=== PATIENT | female | born 1990 | race Caucasian/White ===

== ENCOUNTER → 2019-10-26 17:00 | Outpatient (BNVA) | payer OTHER, SELFPAY | PROVIDERS: Family Provider Family Medicine; PCP Family Medicine; Visit Provider Obstetrics & Gynecology | DX: Z12.4 Encounter for screening for malignant neoplasm of cervix (principal) | CPT/HCPCS: 88175 ==

== ENCOUNTER → 2019-12-21 13:47 | Outpatient (BNVA) | payer OTHER, SELFPAY | PROVIDERS: Family Provider Family Medicine; PCP Family Medicine; Visit Provider Obstetrics & Gynecology | DX: O09.299 Supervision of pregnancy with other poor reproductive or obstetric history, unspecified trimester (principal); Z3A.10 10 weeks gestation of pregnancy | CPT/HCPCS: 80053; 80307; 84315; 85027; 86592; 86762; 86803; 86850; 86900; 87077; 87086; 87186; 87340 ==

== ENCOUNTER → 2020-01-03 10:25 | Outpatient (BNVA) | payer OTHER, SELFPAY | PROVIDERS: Family Provider Family Medicine; PCP Family Medicine; Visit Provider Obstetrics & Gynecology | DX: O99.89 Other specified diseases and conditions complicating pregnancy, childbirth and the puerperium (principal); R82.71 Bacteriuria; Z3A.12 12 weeks gestation of pregnancy | CPT/HCPCS: 84315; 87491; 87591 ==

== ENCOUNTER → 2020-02-01 15:56 | Outpatient (BNVA) | payer OTHER, SELFPAY | PROVIDERS: Family Provider Family Medicine; PCP Family Medicine; Visit Provider Nurse Practitioner Women's Health | DX: Z34.90 Encounter for supervision of normal pregnancy, unspecified, unspecified trimester (principal) | CPT/HCPCS: 80053; 84315; 87077; 87086; 87184 ==

== ENCOUNTER → 2020-03-27 10:54 | Outpatient (BNVA) | payer OTHER, SELFPAY | PROVIDERS: Family Provider Family Medicine; PCP Family Medicine; Visit Provider Obstetrics & Gynecology | DX: O23.42 Unspecified infection of urinary tract in pregnancy, second trimester (principal); R82.71 Bacteriuria; O09.299 Supervision of pregnancy with other poor reproductive or obstetric history, unspecified trimester; O09.292 Supervision of pregnancy with other poor reproductive or obstetric history, second trimester; Z3A.24 24 weeks gestation of pregnancy | CPT/HCPCS: 84315; 87077; 87086; 87184 ==

== ENCOUNTER → 2020-04-24 08:57 | Outpatient (BNVA) | payer OTHER, SELFPAY | PROVIDERS: Family Provider Family Medicine; PCP Family Medicine; Visit Provider Obstetrics & Gynecology | DX: Z34.90 Encounter for supervision of normal pregnancy, unspecified, unspecified trimester (principal) | CPT/HCPCS: 82950; 84315; 85025 ==

== ENCOUNTER → 2020-05-08 09:50 | Outpatient (BNVA) | payer OTHER, SELFPAY | PROVIDERS: Family Provider Family Medicine; PCP Family Medicine; Visit Provider Obstetrics & Gynecology | DX: Z34.90 Encounter for supervision of normal pregnancy, unspecified, unspecified trimester (principal) | CPT/HCPCS: 84315; 87077; 87086; 87184 ==

== ENCOUNTER → 2020-06-19 08:53 | Outpatient (BNVA) | payer OTHER, SELFPAY | PROVIDERS: Family Provider Family Medicine; PCP Family Medicine; Visit Provider Obstetrics & Gynecology | DX: O99.891 Other specified diseases and conditions complicating pregnancy (principal); O09.299 Supervision of pregnancy with other poor reproductive or obstetric history, unspecified trimester; R82.71 Bacteriuria | CPT/HCPCS: 84315; 87077; 87081; 87086; 87184 ==

== ENCOUNTER → 2020-07-03 12:47 | Outpatient (BNVA) | payer OTHER, SELFPAY | PROVIDERS: Family Provider Family Medicine; PCP Family Medicine; Visit Provider Obstetrics & Gynecology | DX: Z34.80 Encounter for supervision of other normal pregnancy, unspecified trimester (principal) | CPT/HCPCS: 81000 ==

== ENCOUNTER → 2020-07-10 13:47 | Outpatient (BNVA) | payer OTHER, SELFPAY | PROVIDERS: Family Provider Family Medicine; PCP Family Medicine; Visit Provider Obstetrics & Gynecology | DX: Z34.80 Encounter for supervision of other normal pregnancy, unspecified trimester (principal); Z20.822 Contact with and (suspected) exposure to COVID-19 | CPT/HCPCS: 87635 ==

== ENCOUNTER 2020-07-15 15:30 | Inpatient (IN) | payer OTHER, SELFPAY ==
[2020-07-15] VITALS (82 sets, daily range): BP systolic 79–149; BP diastolic 45–80; PULSE 69–156; RESP 15–16; TEMP 36.1–37.1; O2SAT 80–98; BMI 33.2
[2020-07-15] MEDS: lactated ringers 1,000 ML 999 ML IV ×2 (16:10→17:14)
[2020-07-15 16:19] LABS: Basophils # 0.1 10^3/uL (0.0-0.1); Basophils % 0.3 %; Eosinophils % 0.1 %; Hematocrit 35.6 % (37.0-47.0); Hemoglobin 12.1 g/dL (11.5-15.3); Lymphocytes # 1.8 10^3/uL (0.8-4.8); Lymphocytes % 12.8 %; Mean Corpuscular Hemoglobin 30.3 pg (28.0-34.0); Mean Platelet Volume 10.7 fL (7.4-10.4); Monocytes # 0.9 10^3/uL (0.2-0.9); Monocytes % 6.4 %; Neutrophils % 79.8 %; Nucleated Red Blood Cells % 0 %; Platelet Count 182 10^3/cmm (130-400); Red Cell Distribution Width 13.7 % (12.1-15.1); White Blood Count 14.4 10^3/uL (4.0-10.0)
--- NOTE | 2020-07-15 17:40 | ANES.PREANE2 ---
Pre-Anesthetic Assessment Pre-Anesthetic Assessment: Height/Weight: Height 1.68 m Weight 93.44 kg Temp Pulse BP Pulse Ox 97.2 F L 93 99/58 97 07/15/20 17:30 07/15/20 17:36 07/15/20 17:36 07/15/20 17:21 Preop Diagnosis: labor pain Proposed Procedure: epidural Familial anesthetic complications: none Was Beta Alayna taken within 24 hours: N/A Was Clonidine taken within 24 hours: N/A Social: Social History: No alcohol and No tobacco Exam: Pre-Anes Outpt Exam: alert, oriented x 3, clear to auscultation bilaterally and regular rate & rhythm Airway: Submandibular: WNL Cervical ROM: WNL MP: 2 Dentition: Full Pulmonary: Pulmonary: None reported CV/HEM: CV/HEM: Anemia : : None reported Hepatic: Hepatic: None reported GI: GI: None reported Metabolic: Metabolic: None reported Musc/skel: Musc/skel: None reported Neuropsych: Neuropsych: None reported Anesthetic Plan: ASA status: 2 Anesthesia: Regional (specify below) Risk of > 500 ml blood loss (7ml/kg in children): No Meds/Allergies Current Medications: Current Medications Generic Name Dose Route Start Last Admin Trade Name Freq PRN Reason Stop Dose Admin Lactated Ringer's 1,000 mls @ 999 m ls/hr 07/15/20 16:01 07/15/20 17:14 Lactated Ringers IV 999 mls/hr .Q1H1M PRN Administration See label comment s PFSH Anesthesia PFSH: Medical History No pertinent past medical history Denies diabetes, asthma, hypertension, seizures, DVT/PE. PCP: Dr. June Surgical History S/P wisdom tooth extraction Family History Denies family history of Colon cancer Ovarian cancer Diabetes Heart disease Hyperlipidemia Breast cancer Hypertension Uterine cancer Thyroid condition Stroke Social History Smoking and tobacco status: never smoked Alcohol intake: never Female Reproductive History: : 2 Data Anesthesia CBC & Chem 7: 07/15/20 15:58 Other Labs: Laboratory Results - last 48 hr 07/15/20 07/15/20 15:58 15:58 WBC 14.4 H RBC 4.00 L Hgb 12.1 Hct 35.6 L MCV 89.0 MCH 30.3 MCHC 34.0 RDW 13.7 Plt Count 182 MPV 10.7 H Neut % (Auto) 79.8 Lymph % (Auto) 12.8 [place] % (Auto) 6.4 Eos % (Auto) 0.1 Baso % (Auto) 0.3 Neut # (Auto) 11.50 H Lymph # (Auto) 1.8 [place] # (Auto) 0.9 Eos # (Auto) 0.0 Baso # (Auto) 0.1 Nucleated RBC % (auto) 0 Nucleated RBCs # 0.0 Blood Type O Positive Rho(D) Type Positive / 4+ Antibody Screen Negative Cardiac Studies: No Data to Display
--- NOTE | 2020-07-15 17:43 | P.ANES_ITS ---
Anesthesia Procedures Procedure/Date: 07/15/20 epidural Procedure Narrative: epidural complete, bolus given, epidural pump initiated with SOUVENIR ASSEMBLER education given, vitals taken during procedure using OBIX system and satisfactory throughout, patient admits to decrease pain, report of procedure to OB RN Epidural: Time Out Performed: Yes Consents Signed: Procedure Consent Consent: requested by attending/covering physician, from patient, risks and benefits reviewed and patient agrees to proceed Lumbar Level: L3-L4 Epidural position: sitting Epidural procedure: sterile prep of area, 1% lidocaine to numb the area (3 mL), 18 g needle, negative for paresthesia passed, neg for paresthesia, test dose given, 1.5% xylocaine 1:200k epi (5 mL), 0.2% Ropivacaine bolus ml (5 mL), placed PCEA, no systemic response, sterile dressing applied, L.U.D. no apparent complications and 0.2% Ropiavacaine @ mls/hr (13 mL/hr)
[2020-07-15] MEDS: oxytocin 30 UNIT/500 ML BAG 600 UNIT IV ×2 (19:02→21:04)
[2020-07-15] MEDS: miSOPROStol 200 mcg Tablet 800 MCG PR (19:02)
--- NOTE | 2020-07-15 19:10 | P.PCNOB_ITS ---
Delivery Note: Date of delivery: July 15, 2020 - PRE-DELIVERY DIAGNOSIS: 29-year-old 2 para 1-0-0-1 at 40 weeks and 0 days Active labor GBS negative Asymptomatic bacteriuria with E faecalis on suppressive antibiotics History of third-degree perineal tear History of hemorrhage POST-DELIVERY DIAGNOSIS: Vaginal delivery on 07/15/2020 PROCEDURE: Vaginal delivery on 07/15/2020 ANESTHESIA: Epidural anesthesia DELIVERING PHYSICIAN: Tomy Ren FACOG PRE-DELIVERY COURSE: Ms. Rodriguez is a 29-year-old 2 para 1-0-0-1 at 40 weeks and 0 days who presented to labor and delivery with reports of contractions. She states contractions started at 3 AM on 07/15/2020 when initially sporadic however after about 2 PM started to get more intense and regular and as result she came in. On initial examination she was noted to be 4 cm, 90% and -3 station cephalic with a category 1 tracing and was denny every 2 to 3 minutes and was uncomfortable. Covid and GBS were negative. She was admitted in active labor and 1 hour later was noted to be 7 cm 100% and -2 station with a bulging bag. She requested an epidural and this was placed and after the epidural she was noted to be 8 cm, 100% and -2 station. She had spontaneous rupture of membranes at 6:12 PM with clear fluid and was noted to be complete at this time and +2 station. She was feeling a lot of pressure and was set up in lithotomy position ready to push. tracing was overall category 1 other than occasional late decelerations that resolved with position change. DELIVERY NOTE: She was set up in lithotomy position and was pushing effectively. She was noted to be +3 station and continued pushing well. The head delivered in NIKKI position, nuchal cord x1 that was tight was present. The shoulders and rest of the body followed with her next push and delivered through the nuchal cord in a transverse fashion.. The baby's mouth and nose were suctioned and the baby was placed on the mother's belly. Once cord pulsations stopped the cord was clamped and cut. The placenta delivered spontaneously intact with membranes and was discarded. The fundus was noted to be firm and well contracted. The lower uterine segment continued to be boggy despite massage and 800 mcg of Cytotec was placed. The vagina and cervix were inspected and no cervical or sulcal lacerations were noted. The perineum was intact except for a second-degree perineal tear. Rectal exam was performed and rectal sphincter and mucosa were noted to be intact. Baby girl, Stefany Munoz born at 6:43 PM on 07/15/2020 with 7/8, weighing 9 pounds 0 ounces, 4090 g, 21-1/2 inches long. Placenta was delivered spontaneously intact with membranes at 6:47 PM. Cotyledons were intact , centrally inserted umbilical cord with 3 vessels noted. Estimated blood loss 350 mL. Complications-none, both baby and mother were left to recover in a stable condition. This documentation was created by [employer] service delivery manager software (known for inherent service delivery manager error). Every effort was made to assure accuracy of service delivery manager. Any obvious errors or omissions should be clarified with the author of the document. Coding Level of Care Code Acute Lunchroom Supervisor for Chg Fwd History History History 2 Term 2 Miscarriages/Ectopic 0 0 Living Children 2 Other History: 2 Para 2001, VAVD x 1 X 1 1----> 05/31/2017, full-term vacuum-assisted vaginal delivery at 39 weeks of a baby boy (Edis) [place] [facility] [place] to [place] exhaustion. was complicated by a two-vessel cord with no other complications. Delivery was complicated by third-degree perineal tear which was repaired and hemorrhage secondary to bleeding from the tears. Patient was anemic and had a syncopal episode and required a blood transfusion of 2 units after which she did well. 2----> 07/15/2020, 40 weeks, active labor, vaginal delivery of [place] baby [place](Stefany Munoz) [place] Dr. Ren [place] [facility] [place] 9 pounds 0 ounces. Second- degree perineal tear.
[2020-07-15] MEDS: methylergonovine 0.2 mg/mL INJ 1 mL IM (20:52)
[2020-07-15] MEDS: benzocaine-menthol 78 gm Canister 1 SPRAY TOPICAL (21:06)
[2020-07-15] MEDS: ibuprofen 800 mg tablet PO (21:07)
[2020-07-15] MEDS: lanolin oint 7 gm 1 APPLIC TOPICAL (21:07)
[2020-07-16] VITALS (13 sets, daily range): BP systolic 104–123; BP diastolic 58–78; PULSE 77–104; TEMP 36.1; O2SAT 96–97
[2020-07-16] MEDS: miSOPROStol 200 mcg Tablet PO ×4 (00:20→19:30)
[2020-07-16 06:37] LABS: Hematocrit 33.2 % (37.0-47.0); Hemoglobin 11.1 g/dL (11.5-15.3); Mean Corpuscular HGB Conc 33.4 g/dL (30.0-36.0); Mean Corpuscular Hemoglobin 30.6 pg (28.0-34.0); Mean Corpuscular Volume 91.5 fL (81-99); Mean Platelet Volume 10.5 fL (7.4-10.4); Platelet Count 158 10^3/cmm (130-400); Red Blood Count 3.63 10^6/uL (4.1-5.3); Red Cell Distribution Width 13.8 % (12.1-15.1); White Blood Count 15.8 10^3/uL (4.0-10.0)
[2020-07-16] MEDS: ibuprofen 800 mg tablet PO ×2 (09:52→14:54)
[2020-07-16] MEDS: prenatal vitamin Capsule 1 CAP PO (09:52)
[2020-07-16] MEDS: docusate sodium 100 mg Capsule PO ×2 (09:52→19:31)
--- NOTE | 2020-07-16 18:42 | PM.DCS ---
Discharge Providers Date of Admission: 07/15/20 15:30 Date of Discharge: July 16, 2020 Attending Provider at Admission: Tomy Anne MD Attending Provider at Discharge: Tomy Anne MD Primary Care Provider: PRE-DELIVERY DIAGNOSIS: 29-year-old 2 para 1-0-0-1 at 40 weeks and 0 days Active labor GBS negative Asymptomatic bacteriuria with E faecalis on suppressive antibiotics History of third-degree perineal tear History of hemorrhage POST-DELIVERY DIAGNOSIS: Vaginal delivery on 07/15/2020 PROCEDURE: Vaginal delivery on 07/15/2020 ANESTHESIA: Epidural anesthesia DELIVERING PHYSICIAN: Tomy Ren FACOG PRE-DELIVERY COURSE: Ms. Rodriguez is a 29-year-old 2 para 1-0-0-1 at 40 weeks and 0 days who presented to labor and delivery with reports of contractions. She states contractions started at 3 AM on 07/15/2020 when initially sporadic however after about 2 PM started to get more intense and regular and as result she came in. On initial examination she was noted to be 4 cm, 90% and -3 station cephalic with a category 1 tracing and was denny every 2 to 3 minutes and was uncomfortable. Covid and GBS were negative. She was admitted in active labor and 1 hour later was noted to be 7 cm 100% and -2 station with a bulging bag. She requested an epidural and this was placed and after the epidural she was noted to be 8 cm, 100% and -2 station. She had spontaneous rupture of membranes at 6:12 PM with clear fluid and was noted to be complete at this time and +2 station. She was feeling a lot of pressure and was set up in lithotomy position ready to push. tracing was overall category 1 other than occasional late decelerations that resolved with position change. DELIVERY NOTE: She was set up in lithotomy position and was pushing effectively. She was noted to be +3 station and continued pushing well. The head delivered in NIKKI position, nuchal cord x1 that was tight was present. The shoulders and rest of the body followed with her next push and delivered through the nuchal cord in a transverse fashion.. The baby's mouth and nose were suctioned and the baby was placed on the mother's belly. Once cord pulsations stopped the cord was clamped and cut. The placenta delivered spontaneously intact with membranes and was discarded. The fundus was noted to be firm and well contracted. The lower uterine segment continued to be boggy despite massage and 800 mcg of Cytotec was placed. The vagina and cervix were inspected and no cervical or sulcal lacerations were noted. The perineum was intact except for a second-degree perineal tear. Rectal exam was performed and rectal sphincter and mucosa were noted to be intact. Baby girl, Stefany Munoz born at 6:43 PM on 07/15/2020 with 7/8, weighing 9 pounds 0 ounces, 4090 g, 21-1/2 inches long. Placenta was delivered spontaneously intact with membranes at 6:47 PM. Cotyledons were intact , centrally inserted umbilical cord with 3 vessels noted. Estimated blood loss 350 mL. Complications-none, both baby and mother were left to recover in a stable condition. HOSPITAL COURSE: She underwent an uncomplicated vaginal delivery on 07/16/2020. 2 hours after delivery she had some uterine atony which responded well to Methergine and another bolus of Pitocin and after that had very minimal bleeding with a firm fundus.. She was continued on Cytotec 200 mcg every 6 hours while in the hospital and sent home with this prescription for a total of 3 days after delivery. She did well on day 0 and was ambulating well, tolerating regular diet, voiding freely, passing flatus. She was breast-feeding without difficulty and bonding well with her daughter. Pain was well-controlled with by mouth pain medication. She denied nausea, vomiting, fever, chills, shortness of breath, leg pain. She had moderate vaginal bleeding. On day # 1 she continued to do well with stable vital signs and stable hemoglobin at 11.1. She was discharged home on day 1 in a stable condition, as she desired early discharge. Warning signs for endometritis, mastitis, DVT/PE were reviewed with her. Post delivery activity restrictions were also reviewed with her at all her questions were answered to her satisfaction. Plans on using control pills for contraception and we will start this at her 6-week visit EXAM AT DISCHARGE: Gen.: No acute distress Heart: S1-S2 heard, regular rate and rhythm Lungs: Clear to auscultation bilaterally Abdomen: Soft, fundus firm below umbilicus, Legs: No calf tenderness, +1 bilateral pitting pedal edema. CONDITION AT DISCHARGE: Stable This documentation was created by [employer] landing gear mechanic software (known for inherent landing gear mechanic error). Every effort was made to assure accuracy of landing gear mechanic. Any obvious errors or omissions should be clarified with the author of the document. Reason for Visit Reason for Visit: Contractions Physical Exam Urinary Catheter Management^: Cox: Cath Placed During This Visit: yes Reason for Continuing Indwelling Catheter: Acute Urinary Retention or Obstruction Urinary Catheter Date of Insertion: 07/15/20 Urinary Catheter Time of Insertion: 17:54 Discharge Data Data Completed and Pending: Labs from last 24 hours 07/16/20 06:25 WBC 15.8 H RBC 3.63 L Hgb 11.1 L Hct 33.2 L MCV 91.5 MCH 30.6 MCHC 33.4 RDW 13.8 Plt Count 158 MPV 10.5 H Vitals: Last Vital Signs Temp 98.7 F 07/15/20 22:21 Pulse 81 07/16/20 17:22 Resp 16 07/15/20 22:21 BP 115/70 07/16/20 17:22 Pulse Ox 97 07/16/20 00:11 Discharge Plan Discharge Patient Disposition: Home Condition: Stable Prescriptions: New ibuprofen 800 mg tablet 800 mg PO Q8H Qty: 30 RF: 0 docusate sodium 100 mg Capsule 100 mg PO BID PRN (Reason: constipation) Qty: 30 RF: 0 misoprostol [Cytotec] 200 mcg tablet 200 mcg PO QID Qty: 8 RF: 0 Continued DHA 200 mg capsule 200 mg PO DAILY RF: 0 Discontinued ferrous sulfate 325 mg (65 mg iron) tablet,delayed release (DR/EC) 325 mg PO DAILY Qty: 180 RF: 0 cephalexin 250 mg capsule 250 mg PO BID Qty: 30 RF: 0 Discharge Orders: Discharge Order (Routine); Ordered 07/16/20 Ordered By: Tomy Anne Referrals: Tomy Anne MD [Physician] - (6-week with Dr Ren) Patient Instructions: Your Baby (DC), and Nipple Soreness (GEN), Pre-eclampsia and Eclampsia (GEN), OB Discharge Report, OB Food/Drug Interaction Guide, OB Home Care, OB Vaginal Deliveries - [facility], Abnormal Bleeding, Depression Activity Restrictions/Additional Instructions: Pelvic rest for 6 weeks, no heavy lifting for 6 weeks Discharge Attestations Time Spent in Discharge Care*: greater than 30 min Quality Metrics Clinical Quality Measures During this hospital stay, did patient experience: None Coding Level of Care Code Acute Trig SERENE ACOSTA note
== END 2020-07-16 20:55 | disposition home or self-care (01) | DRG 807 ==
PROVIDERS: Admitting Provider Obstetrics & Gynecology; Family Provider Family Medicine; PCP Family Medicine; Visit Provider Obstetrics & Gynecology
DX: O69.2XX0 Labor and delivery complicated by other cord entanglement, with compression, not applicable or unspecified (principal); Z37.0 Single live birth; O76 Abnormality in fetal heart rate and rhythm complicating labor and delivery; O70.1 Second degree perineal laceration during delivery; Z3A.40 40 weeks gestation of pregnancy; O75.89 Other specified complications of labor and delivery; B95.2 Enterococcus as the cause of diseases classified elsewhere
CPT/HCPCS: 36415; 51702; 59025; 59409; 85025; 85027; 86850; 86900; 96372; 99211; J2210; J2795

== ENCOUNTER → 2022-01-03 08:09 | Outpatient (BNVA) | payer OTHER, SELFPAY | PROVIDERS: Family Provider Family Medicine; PCP Family Medicine; Visit Provider Family Medicine | DX: Z00.00 Encounter for general adult medical examination without abnormal findings (principal); Z13.220 Encounter for screening for lipoid disorders; Z51.81 Encounter for therapeutic drug level monitoring | CPT/HCPCS: 80053; 80061; 85025 ==

== ENCOUNTER → 2022-05-06 13:53 | Outpatient (BNVA) | payer OTHER, SELFPAY | PROVIDERS: Family Provider Family Medicine; PCP Family Medicine; Referring Provider Family Medicine; Visit Provider Family Medicine | DX: Z34.90 Encounter for supervision of normal pregnancy, unspecified, unspecified trimester (principal); R30.0 Dysuria | CPT/HCPCS: 80307; 81000; 81025; 84144; 84443; 85007; 85025; 86592; 86762; 86803; 86850; 86900; 87086; 87340; 87491; 87591; 87624; 87806 ==

== ENCOUNTER 2022-05-13 07:40 | Outpatient (CLI) | payer OTHER, SELFPAY ==
--- NOTE | 2022-05-13 07:45 | US_ITS ---
WS: [id number] EARLY OBSTETRICAL ULTRASOUND (<14 WEEKS). HISTORY: Dates. COMPARISON: None available. Single intrauterine gestational sac is identified. Cardiac activity at 160 BPM. [place]-rump length darinel sures 1.4 cm which corresponds to a gestation of 7w5d. Normal-appearing yolk sac and amnion demonstra eliazar. Small subchorionic hemorrhage. Subchorionic hemorrhage measures approximately 7 x 5 mm along th e posterior gestational sac. No free fluid. Normal size ovaries with no mass. US/US OB <= 14 weeks fetus [id number] IMPRESSION: 1. Single intrauterine gestation of 7 weeks 5 days with an EDC of 12/25/2022 2. Normal cardiac activity.
== END 2022-05-13 07:41 | disposition home or self-care (01) ==
LOC: RAD 07:42
PROVIDERS: Family Provider Family Medicine; PCP Family Medicine; Visit Provider Family Medicine
DX: O20.9 Hemorrhage in early pregnancy, unspecified (principal); Z3A.14 14 weeks gestation of pregnancy
CPT/HCPCS: 76801

== ENCOUNTER → 2022-05-26 08:25 | Outpatient (BNVA) | payer OTHER, SELFPAY | PROVIDERS: Family Provider Family Medicine; PCP Family Medicine; Visit Provider Family Medicine | DX: Z34.80 Encounter for supervision of other normal pregnancy, unspecified trimester (principal); Z51.81 Encounter for therapeutic drug level monitoring; D69.6 Thrombocytopenia, unspecified | CPT/HCPCS: 84144; 84702 ==

== ENCOUNTER → 2022-07-15 13:30 | Outpatient (BNVA) | payer OTHER, SELFPAY | PROVIDERS: Family Provider Family Medicine; PCP Family Medicine; Visit Provider Family Medicine | DX: Z34.80 Encounter for supervision of other normal pregnancy, unspecified trimester (principal); Z51.81 Encounter for therapeutic drug level monitoring; D69.6 Thrombocytopenia, unspecified | CPT/HCPCS: 85025 ==

== ENCOUNTER 2022-08-04 14:44 | Outpatient (CLI) | payer OTHER, SELFPAY ==
--- NOTE | 2022-08-04 15:00 | US_ITS ---
WS: [id number] OBSTETRICAL ULTRASOUND COMPLETE HISTORY: Anatomy US COMPARISON: 05/13/2022 Single intrauterine gestation in Cephalic presentation. Cervix is Closed and normal length. Cervical length is 3.7 cm. Normal amount of amniotic fluid surrounds the fetus. Placenta: Anterior, no previa or abruption. Placenta grade 1 Heart: 160 BPM. Four chambers are identified. RIGHT and LEFT outflow tracts are unremarkable. Anatomy: Intracranial structures and spine are normal. kidneys, stomach and urinary bladd er are unremarkable. Abdominal wall, three-vessel cord and cord insertion site are normal. 4 extremities are present. profile: Unremarkable. Gender: Male. measurements: BPD = 4.8 cm = 20w3d; HC = 17.7 cm = 20w1d; AC = 14.6 cm = 19w6d; FL = 3.3 cm = 20w1d; EFW: 328 g. Not available. Biometry is internally concordant. AGA by ultrasound: 20w1d CARLOS MANUEL by ultrasound: 12/21/2022 US/US OB >= 14 weeks fetus [id number] IMPRESSION: 1. Single intrauterine gestation of 20w1d with an CARLOS MANUEL of 12/21/2022. 2. Unremarkable screening survey of anatomy.
== END 2022-08-04 14:45 | disposition home or self-care (01) ==
LOC: RAD 14:48
PROVIDERS: Family Provider Family Medicine; PCP Family Medicine; Visit Provider Family Medicine
DX: Z34.82 Encounter for supervision of other normal pregnancy, second trimester (principal); Z3A.20 20 weeks gestation of pregnancy
CPT/HCPCS: 76805

== ENCOUNTER → 2022-09-05 08:47 | Outpatient (BNVA) | payer OTHER, SELFPAY | PROVIDERS: Family Provider Family Medicine; PCP Family Medicine; Visit Provider Family Medicine | DX: Z34.80 Encounter for supervision of other normal pregnancy, unspecified trimester (principal) | CPT/HCPCS: 82950 ==

== ENCOUNTER → 2022-10-28 13:15 | Outpatient (BNVA) | payer OTHER, SELFPAY | PROVIDERS: Family Provider Family Medicine; PCP Family Medicine; Visit Provider Family Medicine | DX: Z34.80 Encounter for supervision of other normal pregnancy, unspecified trimester (principal) | CPT/HCPCS: 85025 ==

== ENCOUNTER → 2022-11-28 08:43 | Outpatient (BNVA) | payer OTHER, SELFPAY | PROVIDERS: Family Provider Family Medicine; PCP Family Medicine; Visit Provider Family Medicine | DX: Z34.90 Encounter for supervision of normal pregnancy, unspecified, unspecified trimester | CPT/HCPCS: 87081 ==

== ENCOUNTER → 2022-12-19 08:40 | Outpatient (BNVA) | payer OTHER, SELFPAY | PROVIDERS: PCP Family Medicine; Visit Provider Family Medicine | DX: Z34.80 Encounter for supervision of other normal pregnancy, unspecified trimester (principal); Z51.81 Encounter for therapeutic drug level monitoring; R03.0 Elevated blood-pressure reading, without diagnosis of hypertension; D69.6 Thrombocytopenia, unspecified | CPT/HCPCS: 80053; 82570; 84156; 84550; 85025 ==

== ENCOUNTER 2022-12-23 20:45 | Inpatient (IN) | payer OTHER, SELFPAY ==
[2022-12-23] VITALS (17 sets, daily range): BP systolic 110–163; BP diastolic 57–89; PULSE 82–104; RESP 15; TEMP 36.3; BMI 33.5
[2022-12-23 19:52] LABS: Basophils % 0.3 %; Eosinophils # 0.1 10^3/uL (0.0-0.8); Eosinophils % 0.7 %; Hematocrit 31.8 % (36-47); Lymphocytes % 16.8 %; Mean Corpuscular HGB Conc 34.3 g/dL (30-55); Mean Corpuscular Hemoglobin 30.9 pg (27-33); Mean Corpuscular Volume 90.1 fl (85-98); Mean Platelet Volume 11.1 fL (7.4-10.4); Monocytes # 1.1 10^3/uL (0.2-0.9); Monocytes % 9.6 %; Neutrophils # 8.41 10^3/uL (1.8-7.7); Neutrophils % 71.8 %; Nucleated Red Blood Cells % 0 %; Platelet Count 141 10^3/cmm (157-399); Red Blood Count 3.53 10^6/uL (3.85-5.65); Red Cell Distribution Width 15.8 % (12.1-15.1); White Blood Count 11.69 10^3/uL (3.29-11.43)
[2022-12-23] MEDS: oxytocin 30 UNIT/500 ML BAG IV (21:15)
[2022-12-23] MEDS: dextrose 5%-lactated ringers 1,000 ML 125 ML IV (21:22)
--- NOTE | 2022-12-23 21:45 | P.HP_ITS ---
Providers/Chief Complaint Admitting Physician: Simeon June MD Primary Care Provider: Simeon June MD Chief Complaint: Induction of Labor History of Present Illness Darrius Rodriguez is a 32 year old @ 40.0 weeks by LMP c/with 7 wk US. Preg c/b 1st TM spotting, h/o hemorrhage x 2 needing transfusion x 1, h/o vacuum assisted delivery, h/o 2 vessel cord, father of baby with hearing problems, anemia The patient presented to labor delivery triage on the evening of 12/23/2022 for a scheduled induction of labor due to postdates. The patient preferred to have induction related to occasionally high blood pressures, history of hemorrhage and history of vacuum-assisted delivery. She currently feels well. She denies any chest pains, shortness of breath, nausea, vomiting, diarrhea, constipation, leakage of fluid, vaginal bleeding. She has been having increased contractions over the last 2 to 3 days that she thought may send her into labor, however spaced out on their own. Medications/Allergies Home Medications Medication Instructions Recorded Confirmed Last Taken Type ferrous sulfate 325 mg (65 mg 325 mg PO BID #60 tabs 10/28/22 12/21/22 Unknown Rx iron) tablet prenat.vits,bernard,swj-faml-dozez 1 tab PO DAILY 10/28/22 12/21/22 Unknown History Allergies Allergy/AdvReac Type Severity Reaction Status Date / Time No Known Allergies Allergy Verified 10/16/21 11:32 PFSH Acute PFSH: Medical History No pertinent past medical history Denies diabetes, asthma, hypertension, seizures, DVT/PE. PCP: Dr. June Surgical History S/P wisdom tooth extraction Family History Denies family history of Colon cancer Ovarian cancer Diabetes Heart disease Hyperlipidemia Breast cancer Hypertension Uterine cancer Thyroid condition Stroke Social History Smoking and tobacco status: never smoked Alcohol intake: never Substance/Drug Use: never Female Reproductive History: : 3 Vitals/I&O/Wt Last Vital Signs Temp 97.3 F L 12/23/22 20:06 Pulse 93 12/23/22 21:31 Resp 15 12/23/22 19:45 BP 119/72 12/23/22 21:31 O2 Del Method Room Air 12/23/22 20:44 Weight last 48 hrs Weight 208 lb Physical Exam Narrative: General: Alert and oriented x3 Eyes: Pupils equal round and reactive to light and accommodation Mouth: Mucous membranes moist, pharynx non-erythematous Cardiac: Regular rate and rhythm without murmurs Lungs: Clear to auscultation bilaterally without wheezes, crackles or rhonchi Abdomen: Soft, non-tender, fundus consistent with gestational age Extremities: Trace edema in the bilateral lower extremities Data 12/23/22 19:35 A&P Assessment and plan (1) Supervision of normal intrauterine in multigravida: The patient is doing well overall at this time. She is 1 cm dilated with 50% ef facement and soft upon presentation. Because she is having regular contractions every 3 to 6 minutes, we will start IV Pitocin instead of Cytotec to help avoid hyperstimulation complications. heart tones have been in the mid 130s with moderate variability good accelerations with a category 1 tracing. Contractions spaced out after admission and have started to come back at every 10 minutes. We will start IV Pitocin and increase by 4 units every 30 minutes. The patient may have a laboring epidural when she gets to 3 cm will be on. We can use IV pain medications prior to this if needed. All questions were answered. The patient and her are in agreement with current plan of care. Attestations Medical Necessity Statement*: The patient will be here for greater than 2 midnights due to routine intrapartum and management of labor and delivery. Coding Level of Care Code Acute Code for Chg Fwd Diagnoses Supervision of normal intrauterine in multigravida Z34.80
[2022-12-24] VITALS (44 sets, daily range): BP systolic 103–140; BP diastolic 55–78; PULSE 70–100; RESP 15–18; TEMP 35.7–36.8; O2SAT 94–98
[2022-12-24] MEDS: lactated ringers 1,000 ML 999 ML IV (02:56)
--- NOTE | 2022-12-24 03:56 | P.ANESUD_ITS ---
Pre-Anesthetic Update Pre-Anesthetic Assessment: Date of Surgery/Procedure: 12/24/22 Preop Anne gnosis: labor Proposed Procedure: epidural Any changes to Pre-Anesthetic Assessment?: No Last Intake: 11:45 Labs Last 48hrs: Short CBC 12/23/22 Range/Units 19:35 WBC 11.69 H (3.29-11.43) 10^ 3/uL Hgb 10.90 L (11.27-16.99) g/ dL Hct 31.8 L (36-47) % MCV 90.1 (85-98) fl Plt Count 141 L (157-399) 10^3/c mm Neut % (Auto) 71.8 % Neut # (Auto) 8.41 H (1.8-7.7) 10^3/u L Vitals: Temperature 97.3 F L 12/23/22 20:06 Pulse Rate 81 12/24/22 03:46 Pulse Rhythm Regular 12/23/22 20:44 Pulse Strength 3+ Normal 12/23/22 20:44 Respiratory Rate 15 12/23/22 19:45 Respiratory Effort Spontaneous, Non- Labored 12/23/22 20:44 Respiratory Depth Normal 12/23/22 20:44 Respiratory Patter n Normal 12/23/22 20:44 Blood Pressure 111/56 12/24/22 03:46 Oxygen Delivery Me thod Room Air 12/23/22 20:44 Exam: Pre-Anes Outpt Exam: alert, oriented x 3, clear to auscultation bilaterally and regular rate & rhythm Cardiac Studies: No Data to Display
--- NOTE | 2022-12-24 04:11 | ANES.PROC ---
Anesthesia Procedures Procedure/Date: 12/24/22 Epidural: Time Out Performed: Yes Consents Signed: Procedure Consent and NPO Consent Consent: requested by attending/covering physician, from patient, risks and benefits reviewed and patient agrees to proceed Lumbar Level: L3-L4 Epidural position: sitting Epidural procedure: sterile prep of area (betadine), 1% lidocaine to numb the area (3ml) and 18 g needle Additional Comments: Pt with local given and once placed tuohy in skin pt began screaming I gotta push the baby is coming. Epi aborted and pt placed supine in bed with Dr June in room for delivery.
[2022-12-24] MEDS: lidocaine 2% INJ 20 mL INJECTION (04:22)
--- NOTE | 2022-12-24 04:57 | P.PCNOB_ITS ---
Delivery Note: Date of delivery: December 24, 2022 Pre-delivery diagnoses: 1. Intrauterine at 40.1 weeks gestation 2. First trimester spotting 3. History of hemorrhage x2 4. History of vacuum-assisted delivery 5. Anemia Post-delivery diagnoses: 1. Intrauterine status post spontaneous vaginal delivery at 40.1 weeks gestation 2. First trimester spotting 3. History of hemorrhage x2 4. History of vacuum-assisted delivery 5. Anemia 6. Delivery of healthy male weighing 9 pounds 8 ounces with Apgars of 7 and 9 Procedure: Spontaneous vaginal delivery Delivering Physician: Simeon June MD Estimated blood loss (mL): 300 Findings: 1. Healthy male weighing 9 pounds 8 ounces with Apgars of 7 and 9 2. Nuchal cord x2 3. Intact placenta with central umbilical cord insertion site Pre-Delivery Course: Darrius Rodriguez is a 32 year old G3 now P3 status post spontaneous vaginal delivery @ 40.1 weeks by LMP c/with 7 wk US. Her was complicated by 1st TM spotting, h/o hemorrhage x 2 needing transfusion x 1, h/o vacuum assisted delivery, h/o 2 vessel cord, father of baby with hearing problems, anemia. The patient presented to labor and delivery on the evening of 12/24/2022 for a scheduled induction of labor. IV Pitocin was started at approximately 9:30 PM. She was 1 cm dilated upon arrival. Her contractions gradually increased in frequency and by approximately 2:30 AM on 12/24/2022 she was 3 cm dilated. At that time she noted some leaking fluid. It was suspected that she may have a high leak. She continued to have a bulging bag. She was bolused for an epidural at that time. From that point she made rapid change and they tried to get an epidural for her, however she changed to complete by approximately 4:08 AM and was not able to get the epidural. Delivery: The patient began pushing at 4:10 AM on 12/24/2022. The patient pushed well and the infant delivered rapidly. The was born in the OA position at 4:12 AM on 12/24/2022. Nuchal cord x2 was reduced prior to delivery of the rest of the . The 's left shoulder was anterior shoulder and it delivered with moderate downward pressure. The rest of the infant delivered without complication. The cord was also noted to be wrapped around the left arm. The 's mouth and nose were bulb suctioned by myself and the infant began crying shortly after delivery. The was placed on the patient's chest where the nurses were waiting to care for him. The cord was clamped by myself after approximately 1 minute and cut by the 's father. Cord blood was obtained. The cord was then drained of blood and uterine massage was carried out and traction was placed on the umbilical cord. The placenta delivered without complication at 4:18 AM on 12/24/2022. The placenta was noted to be intact with a central umbilical cord insertion site. The cervix was inspected and no lacerations were noted. The uterus was noted to be high and with uterine massage, the uterus clamped down well and the patient was able to void with pressure. The patient's bleeding decreased well. The vaginal wall was inspected and a second-degree midline perineal laceration was noted. 1% lidocaine was used for anesthesia. The laceration was repaired using 3-0 Vicryl in a running fashion. The patient tolerated this well. A rectal exam was done and no sutures were noted in the rectal vault. Currently both the mother and are doing well. History History History 3 Term 3 0 Miscarriages/Ectopic 0 Living Children 3 Past Pregnancies Del. Date GA/Weeks Outcome Route Wt Inf Gender Labor Lgth Comp. Anesth esia Location 05/30/17 39 live - full term Vaginal 7 lb 10.5 oz Male 30 raven rs [facility] delivered - [facility] 07/15/20 40 live - full term Vaginal 9 lb Female 15 Other regional [facility] - [facility] 12/24/22 40 live - full term Vaginal 9 lb 8 oz Male 7 hr local [facility] [place] Delivery Date: 05/30/17 Last Updated by: Simeon June MD Induced due to a 2 vessel cord. Possible low fluid, passed out. Vaccuum assisted, 2nd degree tear, 2 units of blood transfused. Delivery Date: 07/15/20 Last Updated by: Simeon June MD Spontaneous labor, episiotomy, Heavy bleeding needing Cytotec, methergine, epidural, 2nd Pit bolus. Delivery Date: 12/24/22 Last Updated by: Simeon June MD 1st TM bleeding, no PP hemorrhage, no epidural A&P Assessment and plan (1) Spontaneous vaginal delivery: Coding Level of Care Code Acute Code for Chg Fwd Diagnoses Spontaneous vaginal delivery O80
[2022-12-24] MEDS: benzocaine-menthol 78 gm Canister 1 SPRAY TOPICAL (07:01)
[2022-12-24] MEDS: docusate sodium 100 mg Capsule PO ×2 (08:57→19:19)
[2022-12-24] MEDS: prenatal vitamin Capsule 1 CAP PO (08:57)
[2022-12-24] MEDS: ibuprofen 800 mg tablet PO ×3 (08:57→20:54)
[2022-12-24 16:18] LABS: Mean Corpuscular HGB Conc 34.5 g/dL (30-55); Mean Corpuscular Volume 89.9 fl (85-98); Mean Platelet Volume 11.1 fL (7.4-10.4); Platelet Count 160 10^3/cmm (157-399); Red Blood Count 3.45 10^6/uL (3.85-5.65); Red Cell Distribution Width 15.8 % (12.1-15.1); White Blood Count 16.66 10^3/uL (3.29-11.43)
--- NOTE | 2022-12-25 03:15 | PC.NURSE ---
Pt hit call light at approximately 0310 and stated she went to the bathroom and felt like she passed a large clot. This RN inspected the clot in the toilet, it appeared to be about the size of a golf ball. This RN instructed mom to lay down, fundal message was performed, uterus was 3 below umbilicus, firm, midline. Pt stated she changed her pad and there was minimal blood on the pad. This RN instructed pt to monitor bleeding and to hit call light again if she feels like she passes another large clot.
[2022-12-25 04:00] VITALS: BP 110/60; PULSE 85; RESP 15; TEMP 37
[2022-12-25 06:31] VITALS: RESP 15
--- NOTE | 2022-12-25 07:04 | PM.DCS ---
Discharge Providers Date of Admission: 12/23/22 20:45 Date of Discharge: December 25, 2022 Attending Provider at Admission: Simeon June MD Attending Provider at Discharge: Simeon June MD Primary Care Provider: Simeon June MD Diagnoses at Discharge Discharge Diagnosis (1) Spontaneous vaginal delivery: Status: Resolved Other Information Additional DC diagnoses/information: 1.? Intrauterine status post spontaneous vaginal delivery at 40.1 weeks gestation 2.? First trimester spotting 3.? History of hemorrhage x2 4.? History of vacuum-assisted delivery 5.? Anemia 6.? Delivery of healthy infant male weighing 9 pounds 8 ounces with Apgars of 7 and 9 Reason for Visit Reason for Visit: Induction of Labor Brief History: Darrius Rodriguez is a 32 year old G3 now P3 status post spontaneous vaginal delivery @ 40.1 weeks by LMP c/with 7 wk US.? Her was complicated by 1st TM spotting, h/o hemorrhage x 2 needing transfusion x 1, h/o vacuum assisted delivery, h/o 2 vessel cord, father of baby with hearing problems, anemia. Hospital Course Hospital Course The patient presented to labor and delivery on the evening of 12/24/2022 for a scheduled induction of labor.? IV Pitocin was started at approximately 9:30 PM.? She was 1 cm dilated upon arrival.? Her contractions gradually increased in frequency and by approximately 2:30 AM on 12/24/2022 she was 3 cm dilated.? At that time she noted some leaking fluid.? It was suspected that she may have a high leak.? She continued to have a bulging bag.? She was bolused for an epidural at that time.? From that point she made rapid change and they tried to get an epidural for her, however she changed to complete by approximately 4:08 AM and was not able to get the epidural. The patient began pushing at 4:10 AM on 12/24/2022.? The patient pushed well and the delivered rapidly.? The infant was born in the OA position at 4:12 AM on 12/24/2022. The patient did well and had moderate bleeding initially that slowly decreased. She did not require any medications beyond IV Pitocin The patient had a second-degree perineal laceration that was repaired without complication. The patient has done well and is showing no signs of complications at this time. She is ambulating, voiding, passing gas and tolerating food by mouth. Her hemoglobin dropped by 0.2 points. The patient's pain is well controlled with Motrin alone. Routine discharge instructions were discussed. The patient will be discharged home today and plan to follow-up with me at 6 weeks . Physical Exam Narrative: General: Alert and oriented x3 Cardiac: Regular rate and rhythm without murmurs Lungs: Clear to auscultation bilaterally without wheezes, crackles or rhonchi Abdomen: Soft, mild tenderness over uterus. The uterus is firm and 1 cm below the umbilicus. Extremities: Trace edema in the bilateral lower extremities Discharge Data Studies Completed and Pending Laboratory Results WBC 16.66 10^3/uL (3.29-11.43) H 12/24/22 15:36 RBC 3.45 10^6/uL (3.85-5.65) L 12/24/22 15:36 Hgb 10.70 g/dL (11.27-16.99) L 12/24/22 15:36 Hct 31.0 % (36-47) L 12/24/22 15:36 MCV 89.9 fl (85-98) 12/24/22 15:36 MCH 31.0 pg (27-33) 12/24/22 15:36 MCHC 34.5 g/dL (30-55) 12/24/22 15:36 RDW 15.8 % (12.1-15.1) H 12/24/22 15:36 Plt Count 160 10^3/cmm (157-399) 12/24/22 15:36 MPV 11.1 fL (7.4-10.4) H 12/24/22 15:36 Neut % (Auto) 71.8 % 12/23/22 19:35 Lymph % (Auto) 16.8 % 12/23/22 19:35 [place] % (Auto) 9.6 % 12/23/22 19:35 Eos % (Auto) 0.7 % 12/23/22 19:35 Baso % (Auto) 0.3 % 12/23/22 19:35 Neut # (Auto) 8.41 10^3/uL (1.8-7.7) H 12/23/22 19:35 Lymph # (Auto) 2.0 10^3/uL (0.8-4.8) 12/23/22 19:35 [place] # (Auto) 1.1 10^3/uL (0.2-0.9) H 12/23/22 19:35 Eos # (Auto) 0.1 10^3/uL (0.0-0.8) 12/23/22 19:35 Baso # (Auto) 0.0 10^3/uL (0.0-0.1) 12/23/22 19:35 Nucleated RBC % (auto) 0 % 12/23/22 19:35 Nucleated RBCs # 0.0 /100WBC 12/23/22 19:35 Vitals Last Vital Signs Temp 98.6 F 12/25/22 04:00 Pulse 85 12/25/22 04:00 Resp 15 12/25/22 06:31 BP 110/60 12/25/22 04:00 Pulse Ox 97 12/24/22 16:45 O2 Del Method Room Air 12/25/22 04:00 Discharge Plan Discharge Patient Disposition: Home Condition: Stable Prescriptions: New ibuprofen 800 mg Tablet 800 mg PO TID Qty: 30 0RF Continued prenat.vits,bernard,yqn-clkn-xrogo Tablet 1 tab PO DAILY ferrous sulfate 325 mg (65 mg iron) tablet 325 mg PO BID Qty: 60 3RF Discharge Orders: Discharge Order (Routine); Ordered 12/25/22 Ordered By: Simeon June Referrals: Simeon June MD [Primary Care Provider] - 02/05/23 9:00 am () Discharge Diet: Regular Patient Instructions: Depression (DC), Preeclampsia and Eclampsia After Delivery (GEN), Hemorrhage (DC), OB Discharge Report, OB Food/Drug Interaction Guide, Opioid Safety, OB [facility], OB Vaginal Deliveries, Abnormal Bleeding Activity Restrictions/Additional Instructions: Nothing per vagina for 6 weeks. I would recommend showers instead of baths for the first 6 weeks. Discharge Attestations Time Spent in Discharge Care*: less than 30 min Quality Metrics Clinical Quality Measures [ No reported AMI, CVA or VTE this stay] Coding Level of Care Code Acute Code for Chg Fwd Diagnoses Spontaneous vaginal delivery O80
[2022-12-25 10:40] VITALS: BP 120/78; PULSE 78; RESP 18; TEMP 36.4; O2SAT 98
== END 2022-12-25 10:45 | disposition home or self-care (01) | DRG 807 ==
LOC: OPOB 20:46 → OBGYN 20:46
PROVIDERS: Admitting Provider Family Medicine; PCP Family Medicine; Visit Provider Family Medicine
DX: O48.0 Post-term pregnancy (principal); Z37.0 Single live birth; Z3A.40 40 weeks gestation of pregnancy; O69.81X0 Labor and delivery complicated by cord around neck, without compression, not applicable or unspecified; O99.02 Anemia complicating childbirth; D64.9 Anemia, unspecified; O70.1 Second degree perineal laceration during delivery
CPT/HCPCS: 36415; 59025; 59409; 85025; 85027; 99211; J2590; J7120; J7121

== ENCOUNTER 2023-07-21 10:54 | Outpatient (CLI) | payer OTHER, SELFPAY ==
--- NOTE | 2023-07-21 11:06 | XRR_ITS ---
PROCEDURE INFORMATION: Exam: XR Right Foot Exam date and time: 07/21/2023 11:09 AM Age: 32 years old Clinical indication: Injury or trauma; Fall; Blunt trauma; Foot; Right; Injury date: 07/20/23; Injury details: Fell down stairs yesterday; Additional info: Pain after fall TECHNIQUE: Imaging protocol: Radiologic exam of the right foot. Views: 3 or more views. COMPARISON: No relevant prior studies available. FINDINGS: Bones/joints: There is a oblique comminuted interarticular fracture involving the proximal medial aspect of the proximal phalange of the great toe. The age of this finding is indeterminate. Soft tissues: Normal. XR/XR foot RT min 3V* [id number] IMPRESSION: 1. Interarticular fracture proximal phalange of the great toe 2. Otherwise negative for additional bony abnormality of the foot.
== END 2023-07-21 10:55 | disposition home or self-care (01) ==
LOC: RAD 11:01
PROVIDERS: PCP Family Medicine; Visit Provider Chiropractor
DX: S92.411A Displaced fracture of proximal phalanx of right great toe, initial encounter for closed fracture (principal); W10.9XXA Fall (on) (from) unspecified stairs and steps, initial encounter
CPT/HCPCS: 73630

== ENCOUNTER 2023-08-11 07:47 | Outpatient (CLI) | payer OTHER, SELFPAY ==
--- NOTE | 2023-08-11 07:55 | XR_ITS ---
WS: [id number] XR foot RT min 3V* [id number] REASON FOR EXAM: fractured toe FINDINGS: Fracture of the proximal most medial metaphysis of the proximal phalanx of the great toe with intra-a rticular extension. Minimal displacement of the small proximal fracture fragment. No change in the fracture site compared to 07/21/2023. XR/XR foot RT min 3V* [id number] IMPRESSION: Stable right great toe fracture.
== END 2023-08-11 07:48 | disposition home or self-care (01) ==
PROVIDERS: Absent Provider Chiropractor; PCP Family Medicine; Visit Provider Clinical Nurse Specialist Adult Health
DX: S92.414A Nondisplaced fracture of proximal phalanx of right great toe, initial encounter for closed fracture (principal); Y99.9 Unspecified external cause status
CPT/HCPCS: 73630

== ENCOUNTER → 2023-08-13 09:00 | Outpatient (BNVA) | payer OTHER, SELFPAY | PROVIDERS: PCP Family Medicine; Visit Provider Podiatrist Foot & Ankle Surgery | DX: S92.411A Displaced fracture of proximal phalanx of right great toe, initial encounter for closed fracture; X58.XXXA Exposure to other specified factors, initial encounter | CPT/HCPCS: 73630 ==

== ENCOUNTER → 2023-09-21 09:02 | Outpatient (BNVA) | payer OTHER, SELFPAY | PROVIDERS: PCP Family Medicine; Visit Provider Podiatrist Foot & Ankle Surgery | DX: S92.411D Displaced fracture of proximal phalanx of right great toe, subsequent encounter for fracture with routine healing; W10.9XXD Fall (on) (from) unspecified stairs and steps, subsequent encounter | CPT/HCPCS: 73630 ==

== ENCOUNTER → 2023-11-18 15:01 | Outpatient (BNVA) | payer OTHER, SELFPAY | PROVIDERS: PCP Family Medicine; Visit Provider Podiatrist Foot & Ankle Surgery | DX: S92.414 Nondisplaced fracture of proximal phalanx of right great toe (principal); W10.9XXD Fall (on) (from) unspecified stairs and steps, subsequent encounter | CPT/HCPCS: 73630 ==

== ENCOUNTER 2023-12-09 09:19 | Day surgery (SDC) | payer OTHER, SELFPAY ==
--- NOTE | 2023-12-09 | XR_ITS ---
WS: [id number] C-ARM RADIOGRAPHS RIGHT TOES; 3 IMAGES HISTORY: GAVIN PICS COMPARISON: None available. 3 imaging submitted. Intraoperative imaging during procedure by podiatry. XR/XR toe RT min 2V [id number] IMPRESSION: Intraoperative imaging during procedure by podiatry.
[2023-12-09 09:33] VITALS: BP 130/86; PULSE 95; RESP 17; TEMP 36.2; O2SAT 100
[2023-12-09 09:34] VITALS: BMI 30.7
[2023-12-09] MEDS: acetaminophen 1,000 MG/100 ML PIGGYBACK 400 MG IV (09:59)
[2023-12-09] MEDS: gabapentin 300 mg Capsule PO (09:59)
--- NOTE | 2023-12-09 10:03 | P.ANESASSM_ITS ---
Pre-Anesthetic Assessment Height/Weight: Height 1.68 m Weight 86.183 kg Temp Pulse Resp BP Pulse Ox O2 Del Method 97.2 F L 95 17 130/86 100 Room Air 12/09/23 09:33 12/09/23 09:33 12/09/23 09:33 12/09/23 09:33 12/09/23 09:33 12/09/23 09:40 Preop Diagnosis: Fracture proximal phalanx right great toe Operation Date: 12/09/23 10:50 Proposed Procedures p hallux proximal phalanx Exostectomy(Right) - Chino Bello DPM Familial anesthetic complications: None Was Beta Alayna taken within 24 hours: N/A Was Clonidine taken within 24 hours: N/A Last intake: Intake Last Liquid Date 12/08/23 Last Liquid Time 20:00 Last Solid Date 12/08/23 Last Solid Time 20:00 Social No alcohol and No tobacco Exam alert, oriented x 3, clear to auscultation bilaterally and regular rate & rhythm Airway Dentition: full Anesthetic Plan ASA status: 3 Anesthesia: MAC Risk of > 500 ml blood loss (7ml/kg in children): No Medications/Allergies Home Medications Medication Instructions Recorded Confirmed Last Taken Type Cam Boot #1 ea 07/21/23 11/18/23 Unknown Rx Allergies Allergy/AdvReac Type Severity Reaction Status Date / Time No Known Allergies Allergy Verified 11/18/23 15:08 [facility] Anesthesia Medical History No pertinent past medical history Denies diabetes, asthma, hypertension, seizures, DVT/PE. PCP: Dr. June Surgical History S/P wisdom tooth extraction Family History Denies family history of Colon cancer Ovarian cancer Diabetes Heart disease Hyperlipidemia Breast cancer Hypertension Uterine cancer Thyroid disease Stroke Social History Smoking and tobacco/nicotine status: never used tobacco/nicotine Alcohol intake: never Substance/Drug Use: never Data Anesthesia Cardiac Studies: No Data to Display
--- NOTE | 2023-12-09 10:32 | P.HPUD_ITS ---
Surgery/Procedure H&P Update DATE OF PROCEDURE: December 09, 2023 DATE H&P PERFORMED: 11/18/23 H&P UPDATE INFORMATION: I have reviewed H&P completed within last 30 days, I have examined patient prior to procedure, No changes to prior documentation and H&P is in [facility] EMR on date indicated PREOP DIAGNOSIS: Fracture proximal phalanx right great toe PLANNED PROCEDURE: Operation Date: 12/09/23 10:50 Proposed Procedures p hallux proximal phalanx Exostectomy(Right) - Chino Bello DPM
[2023-12-09 10:35] LABS: OR HCG Qualitative Urine Negative (Negative)
[2023-12-09] MEDS: ceFAZolin 2,000 mg SDV 2000 MG IVP (10:56)
[2023-12-09] MEDS: BUPivacaine 0.5% INJ 30 mL INJECTION (11:00)
[2023-12-09] MEDS: BUPivacaine 0.5% INJ 30 mL XX (11:38)
[2023-12-09 11:50] VITALS: BP 115/74; PULSE 93; RESP 20; TEMP 36.2; O2SAT 100
--- NOTE | 2023-12-09 11:51 | W.PM.BPON ---
Date of procedure: 12/09/2023 Surgeon name: John GallegosPCal Clean Up Helper Banquet(s) name(s): Tessy Loredo Procedure(s) performed: Right hallux exostectomy Description of findings: Exostosis right hallux Estimated blood loss: 5 cc Tourniquet time: 20 minutes Specimen(s) removed: None Post-operative diagnosis: Exostosis right hallux
[2023-12-09 11:55] VITALS: BP 122/88; PULSE 90; RESP 18; O2SAT 100
[2023-12-09 12:00] VITALS: BP 126/89; PULSE 90; RESP 18; O2SAT 99
[2023-12-09 12:05] VITALS: BP 128/82; PULSE 88; RESP 18; TEMP 36.4; O2SAT 98
--- NOTE | 2023-12-09 12:35 | ANE.PACU2 ---
Inpatient post-anesthesia follow up: Airway intact: Yes Vital signs: Temperature 97.6 F Pulse Rate 88 Respiratory Rate 18 Blood Pressure 128/82 Pulse Oximetry 98 Oxygen Delivery Me thod Room Air Oxygen Flow Rate Fraction of Inspir ed Oxygen Hydration adequate: Yes Nausea and vomiting: No Pain level: 1 Mental status: Baseline
[2023-12-09] MEDS: sodium chloride 0.9% 1,000 ML 30 ML IV (12:43)
--- NOTE | 2023-12-09 20:33 | PM.OP ---
Operative Report Date of procedure: December 09, 2023 Surgeon: Chino Bello DPM Procedure: Date of procedure: 12/09/2023 Pre-op diagnosis: Right hallux exostosis Post-op diagnosis: Same Post-op findings: Malunion fracture fragment medial base of the proximal phalanx of right hallux Procedure done: Right hallux proximal phalanx exostectomy CPT 38715 Implants: None Specimens removed: None Surgeon: Dr. Chino Bello DPM Physical Therapy Attendant: Tessy Loredo Estimated blood loss: 5 cc Tourniquet time: 20 minutes Complications: None Patient is a 33-year-old female that has a history of right hallux fracture malunion. The patient has had the aforementioned chief complaint for some time. Conservative treatment measures have been attempted and the patient has opted for surgical intervention at this time. A lengthy discussion regarding the procedure, including risks and complications has been had with the patient and is noted in the recent clinic note. Written and verbal consent have been obtained. All patient questions have been answered to the patient?s satisfaction. No written or verbal guarantees have been given or implied. The patient has been NPO since midnight. The history has been reviewed and the history and physical is current. The signed consent was confirmed and placed in the patient chart. Patient imaging has been reviewed and is consistent with the diagnosis. Under mild sedation, the patient was brought into the operating room and placed on the table in the supine position. IV antibiotics were given by the anesthesia team as preoperative surgical prophylaxis. IV sedation was then performed by the anesthesiateam. A local field block was performed using 0.5% Marcaine plain. A pneumatic tourniquet was then placed about the right ankle. The operative extremity was then prepped and draped in the usual fashion. The extremity was then elevated and exsanguinated before the tourniquet was inflated to 250 mmHg. After inflation, the following procedure was then performed. Attention was directed to the right foot where a 5 cm incision was made dorsal medial over the first metatarsophalangeal joint. Dissection was carried down through subcutaneous and superficial fascia with care to avoid adjacent neurovascular structures as well as extensor hallucis longus tendon. Dissection was carried down to the first metatarsal phalangeal joint capsule which was incised using a #15 blade. The capsule was opened up to expose the first metatarsophalangeal joint. The base of the proximal phalanx was visualized. Malunited fracture fragment at base of medial proximal phalanx was visualized. A rongeur was used to remove this portion of bone. Care was taken to observe the medial aspect of the first metatarsophalangeal joint. Any prominence or exostosis visualized was removed using a rongeur. A reciprocating power rasp was then used to smooth down the dorsal medial surface of the proximal phalanx. The first metatarsal head was noted to be healthy and free from any articular damage. Excellent range of motion of first metatarsophalangeal joint was visualized intraoperatively. The site was then irrigated with copious muscle sterile saline before attention was directed to closure. Deep tissue including capsular closure was performed using 3-0 Vicryl followed by subcuticular closure with 4-0 Vicryl and skin closure with 4-0 nylon in horizontal mattress fashion. The tourniquet was let down good hyperemic response was noted to all digits of the right foot. The incision site was dressed with Xeroform, 4 x 4 gauze, Kerlix, Elton. Patient was placed in a postop shoe. The patient tolerated the procedure and anesthesia well and without complication. The patient was transported from the operating room to the recovery room with vital signs stable and vascular status intact to all digits of the right foot. The patient was given both written and verbal instructions to remain weightbearing as tolerated to the operative extremity, to keep dressings/splint clean, dry and intact and to take pain medication as directed. The patient will follow-up in the outpatient setting at their scheduled appointment. The patient was discharged with my personal number and was instructed to call if any questions or issues should arise. They were discharged home once anesthesia criteria was met.
== END 2023-12-09 12:39 | disposition home or self-care (01) ==
PROVIDERS: Anesthesiology; PCP Family Medicine; Visit Provider Podiatrist Foot & Ankle Surgery
PROC: (CPT 28288; principal; 2023-12-09 10:40)
DX: M89.9 Disorder of bone, unspecified (principal)
CPT/HCPCS: 28124; 73660; 76000; 81025; J0131; J0690; J2250; J2704; J3010; J3490; J7030

== ENCOUNTER → 2023-12-23 13:35 | Outpatient (BNVA) | payer OTHER, SELFPAY | PROVIDERS: PCP Family Medicine; Visit Provider Podiatrist Foot & Ankle Surgery | DX: M79.671 Pain in right foot; S92.411D Displaced fracture of proximal phalanx of right great toe, subsequent encounter for fracture with routine healing; X58.XXXD Exposure to other specified factors, subsequent encounter | CPT/HCPCS: 73630 ==

== ENCOUNTER → 2024-01-27 13:02 | Outpatient (BNVA) | payer OTHER, SELFPAY | PROVIDERS: PCP Family Medicine; Visit Provider Podiatrist Foot & Ankle Surgery | DX: Z98.890 Other specified postprocedural states; M79.671 Pain in right foot; S92.411D Displaced fracture of proximal phalanx of right great toe, subsequent encounter for fracture with routine healing; X58.XXXD Exposure to other specified factors, subsequent encounter | CPT/HCPCS: 73630 ==

== ENCOUNTER → 2024-02-05 09:06 | Outpatient (BNVA) | payer OTHER, SELFPAY | PROVIDERS: PCP Family Medicine; Visit Provider Family Medicine | DX: Z51.81 Encounter for therapeutic drug level monitoring (principal); Z13.220 Encounter for screening for lipoid disorders; E03.9 Hypothyroidism, unspecified | CPT/HCPCS: 80053; 80061; 84443; 85025 ==

== ENCOUNTER → 2024-03-22 08:32 | Outpatient (BNVA) | payer OTHER, SELFPAY | PROVIDERS: PCP Family Medicine; Visit Provider Podiatrist Foot & Ankle Surgery | DX: M79.671 Pain in right foot; Z98.890 Other specified postprocedural states; S92.411D Displaced fracture of proximal phalanx of right great toe, subsequent encounter for fracture with routine healing; X58.XXXD Exposure to other specified factors, subsequent encounter | CPT/HCPCS: 73630 ==

== ENCOUNTER 2024-04-29 09:50 | Outpatient (CLI) | payer OTHER, SELFPAY | END 2024-04-29 09:51 | disposition home or self-care (01) | LOC: SPT 09:51 | PROVIDERS: PCP Family Medicine; Visit Provider Podiatrist Foot & Ankle Surgery | DX: Z46.89 Encounter for fitting and adjustment of other specified devices (principal); S92.411S Displaced fracture of proximal phalanx of right great toe, sequela; X58.XXXS Exposure to other specified factors, sequela | CPT/HCPCS: L3030 ==

== ENCOUNTER → 2025-02-06 09:45 | Outpatient (BNVA) | payer OTHER, SELFPAY | PROVIDERS: PCP Family Medicine; Visit Provider Family Medicine | DX: Z51.81 Encounter for therapeutic drug level monitoring (principal); Z13.6 Encounter for screening for cardiovascular disorders; Z00.00 Encounter for general adult medical examination without abnormal findings | CPT/HCPCS: 80053; 80061; 85025 ==